=== PATIENT | male | born 1960 | race Caucasian/White ===

== ENCOUNTER 2021-05-10 23:34 | Emergency (ER) | payer OTHER ==
--- NOTE | 2021-05-10 23:59 | EDM.PDOC ---
ED HPI GENERAL MEDICAL PROBLEM - General Chief Complaint: Headache Stated Complaint: TOOTH PAIN Time Seen by Provider: 05/10/21 23:51 Source of Information: Reports: Patient History Limitations: Reports: No Limitations - History of Present Illness INITIAL COMMENTS - FREE TEXT/NARRATIVE: Andreas is a 60-year-old male from [place], [place] who is vacationing up here and developed a left-sided headache. Patient has a history for migraine headaches. Symptoms started at 1900 hrs. tonight. Patient has been having sinus congestion and had pressure and pain in his left maxillary sinus prior to the onset of the left-sided headache. He is not had any fever or chills. Family states that the patient has a history of sinus problems as well as migraine headaches. Patient has photophobia, some nausea without vomiting, but he denies any new onset of numbness, tingling, weakness, or difficulty with walking. He is reporting some lightheadedness. He has had no fever or chills, cough or shortness of breath. Left Headache Pain Score (Numeric/FACES): 9 - Related Data Allergies Allergy/AdvReac Type Severity Reaction Status Date / Time No Known Allergies Allergy Verified 05/10/21 23:55 Home Meds: Home Meds Omeprazole 20 mg PO DAILY 05/10/21 [History] ED ROS GENERAL - Review of Systems Review Of Systems: See Below Constitutional: Reports: No Symptoms HEENT: Reports: Sinus Problem (Left sinus pain), Vision Change (Photophobia) Respiratory: Reports: No Symptoms Cardiovascular: Reports: No Symptoms Endocrine: Reports: No Symptoms GI/Abdominal: Reports: Nausea : Reports: No Symptoms Musculoskeletal: Reports: No Symptoms Skin: Reports: No Symptoms Neurological: Reports: Dizziness (Lightheadedness), Headache (Left-sided) Psychiatric: Reports: No Symptoms Hematologic/Lymphatic: Reports: No Symptoms Immunologic: Reports: No Symptoms - Physical Exam Exam: See Below Exam Limited By: No Limitations General Appearance: Alert, Anxious, Moderate Distress Eye Exam: Bilateral Eye: EOMI, PERRL, Vision Changes (Photophobia) Nose: Nasal Swelling, Nasal Drainage, Other (Tenderness with percussion over the left frontal and maxillary sinus) Throat/Mouth: Normal Inspection, Normal Lips, Normal Oropharynx, Normal Voice, No Airway Compromise Head Exam: Atraumatic, Normocephalic, Sinus Tenderness (Left frontal and maxillary sinus tenderness with percussion) Neck: Normal Inspection, Supple, Full Range of Motion, Lymphadenopathy (L) Respiratory/Chest: No Respiratory Distress, Lungs Clear, Normal Breath Sounds Cardiovascular: Normal Peripheral Pulses, Regular Rate, Rhythm, No Murmur GI/Abdominal: Normal Bowel Sounds, Soft, Non-Tender Neuro Exam (Abbreviated): Alert, Oriented, CN II-XII Intact, Normal Cognition, No Motor/Sensory Deficits Psychiatric: Anxious Skin Exam: Warm, Dry, Intact, Normal Color, No Rash Course - Vital Signs Last Recorded V/S: Last Vital Signs Temp 36.1 C 05/10/21 23:59 Pulse 59 L 05/10/21 23:59 Resp 18 05/10/21 23:59 BP 190/91 H 05/10/21 23:59 Pulse Ox 99 05/10/21 23:59 - Orders/Labs/Meds Orders: Active Orders 24 hr Category Date Time Status Sodium Chloride 0.9% [Normal Saline] 1,000 ml Med 05/11/21 00:15 Active IV ASDIRECTED Sodium Chloride 0.9% [Saline Flush] Med 05/11/21 00:04 Active 10 ml FLUSH ASDIRECTED PRN Saline Lock Insert [OM.PC] Routine Oth 05/11/21 00:04 Ordered Medication Orders Sodium Chloride (Normal Saline) 1,000 mls @ 999 mls/hr IV ASDIRECTED ZAYNAB Last Admin: 05/11/21 00:21 Dose: 999 mls/hr Documented by: EHSAN Sodium Chloride (Sodium Chloride 0.9% 10 Ml Syringe) 10 ml FLUSH ASDIRECTED PRN PRN Reason: Keep Vein Open Last Admin: 05/11/21 00:21 Dose: 10 ml Documented by: EHSAN Labs: Laboratory Tests 05/11/21 05/11/21 Range/Units 00:12 00:12 WBC 13.6 H (4.5-11.0) K/uL RBC 4.71 (4.30-5.90) M/uL Hgb 13.9 (12.0-15.0) g/dL Hct 41.2 (40.0-54.0) % MCV 88 (80-98) fL MCH 30 (27-31) pg MCHC 34 (32-36) % Plt Count 273 (150-400) K/uL Neut % (Auto) 67.4 H (36-66) % Lymph % (Auto) 20.4 L (24-44) % [place] % (Auto) 9.1 H (2-6) % Eos % (Auto) 2.5 (2-4) % Baso % (Auto) 0.6 (0-1) % C-Reactive Protein 0.32 H (0.0-0.3) mg/dL Meds: Medications Generic Name Dose Route Start Last Admin Trade Name Freq PRN Reason Stop Dose Admin Sodium Chloride 1,000 mls @ 999 mls/hr 05/11/21 00:15 05/11/21 00:21 Normal Saline IV 999 mls/hr ASDIRECTED ZAYNAB Administration Sodium Chloride 10 ml 05/11/21 00:04 05/11/21 00:21 Sodium Chloride 0.9% 10 Ml Syringe FLUSH 10 ml ASDIRECTED PRN Administration Keep Vein Open Discontinued Medications Generic Name Dose Route Start Last Admin Trade Name Herbieq PRN Reason Stop Dose Admin Dexamethasone 10 mg 05/11/21 00:04 05/11/21 00:20 Dexamethasone 4 Mg/Ml Sdv IVPUSH 05/11/21 00:05 10 mg ONETIME ONE Administration Diphenhydramine HCl 50 mg 05/11/21 00:04 05/11/21 00:26 Diphenhydramine 50 Mg/Ml Sdv IVPUSH 05/11/21 00:05 50 mg ONETIME ONE Administration Ketorolac Tromethamine 30 mg 05/11/21 00:04 05/11/21 00:20 Ketorolac 30 Mg/Ml Sdv IVPUSH 05/11/21 00:05 30 mg ONETIME ONE Administration Prochlorperazine Edisylate 10 mg 05/11/21 00:04 05/11/21 00:28 Prochlorperazine 10 Mg/2 Ml Sdv IVPUSH 05/11/21 00:05 10 mg ONETIME ONE Administration - Re-Assessments/Exams Free Text/Narrative Re-Assessment/Exam: 05/11/21 00:09 the patient likely has seasonal allergies that contributed to the development of left-sided maxillary sinusitis. This may have been the nidus to trigger his migraine headache. We will put him on azithromycin Z-Sagar to treat the sinusitis and he should buy one of the wzyc-[id number] allergy medicines like Zyrtec, Nicole, or Claritin or may use an alternative decongestant like pseudoephedrine or Mucinex. For the migraine headache, the patient was given normal saline 1 L IV, Toradol 30 mg IV, diphenhydramine 50 mg IV, Compazine 10 mg IV, and dexamethasone 10 mg IV. 05/11/21 01:06 I reviewed the patient's labs showing a leukocyte count of 13.6 with a left shift. His hemoglobin is 13 9 with hematocrit of 41.2 and a platelet count of 273,000. C-reactive protein is mildly elevated at 0.32. The patient has had some relief with the medication as above. He is still having some pain but this is likely due to the sinusitis and sinus pressure. Departure - Departure Time of Disposition: 01:25 Disposition: Home, Self-Care 01 Clinical Impression: Acute maxillary sinusitis Qualifiers: Recurrence: recurrent Qualified Code(s): J01.01 - Acute recurrent maxillary sinusitis Migraine headache Qualifiers: Migraine type: without aura Status migrainosus presence: without status migrainosus Intractability: intractable Qualified Code(s): G43.019 - Migraine without aura, intractable, without status migrainosus - Discharge Information Instructions: Sinusitis, Adult, Migraine Headache, [id number] Referrals: PCP,None [Primary Care Provider] - Forms: ED Department Discharge Care Plan Goals: For the sinusitis, I am starting you on azithromycin Z-Sagar or you will take 2 pills today and 1 pill a day for the next 4 days. This should help knock out the infection in the maxillary sinus. You may want to consider taking one of the zqax-xui-uafzpdt allergy medicines like Claritin, Nicole, or Zyrtec. An alternative would be using a decongestant like Sudafed or Mucinex. This will help reduce the inflammation in the nose and sinuses and allow them to drain. I have given you a dose of hydrocodone for the sinusitis pain. Please start the antibiotic tonight. I would get the decongestants on board as soon as possible. Sepsis Event Note (ED) - Focused Exam Vital Signs: Vital Signs Temp Pulse Resp BP Pulse Ox 05/10/21 23:59 36.1 C 59 L 18 190/91 H 99 05/10/21 23:53 36.1 C 59 L 18 190/91 H 99 - Problem List & Annotations (1) Acute maxillary sinusitis SNOMED Code(s): 90109564 Code(s): J01.00 - ACUTE MAXILLARY SINUSITIS, UNSPECIFIED Status: Acute Priority: Medium Current Visit: Yes Qualifiers: Recurrence: recurrent Qualified Code(s): J01.01 - Acute recurrent maxillary sinusitis (2) Migraine headache SNOMED Code(s): 24996437 Code(s): G43.909 - MIGRAINE, UNSP, NOT INTRACTABLE, WITHOUT STATUS MIGRAINOSUS Status: Acute Priority: Medium Current Visit: Yes Qualifiers: Migraine type: without aura Status migrainosus presence: without status migrainosus Intractability: intractable Qualified Code(s): G43.019 - Migraine without aura, intractable, without status migrainosus - Problem List Review Problem List Initiated/Reviewed/Updated: Yes - My Orders Last 24 Hours: My Active Orders 05/11/21 00:04 Sodium Chloride 0.9% [Saline Flush] 10 ml FLUSH ASDIRECTED PRN Saline Lock Insert [OM.PC] Routine 05/11/21 00:15 Sodium Chloride 0.9% [Normal Saline] 1,000 ml IV ASDIRECTED - Assessment/Plan Last 24 Hours: My Active Orders 05/11/21 00:04 Sodium Chloride 0.9% [Saline Flush] 10 ml FLUSH ASDIRECTED PRN Saline Lock Insert [OM.PC] Routine 05/11/21 00:15 Sodium Chloride 0.9% [Normal Saline] 1,000 ml IV ASDIRECTED
[2021-05-11] MEDS ORDERED: Sodium Chloride 0.9% 10 ML Syringe FLUSH PRN (00:04)
[2021-05-11] MEDS ORDERED: Dexamethasone 4 MG/ML SDV IVPUSH ONE (00:04)
[2021-05-11] MEDS ORDERED: Prochlorperazine 10 MG/2 ML SDV IVPUSH ONE (00:04)
[2021-05-11] MEDS ORDERED: diphenhydrAMINE 50 MG/ML SDV IVPUSH ONE (00:04)
[2021-05-11] MEDS ORDERED: Ketorolac 30 MG/ML SDV IVPUSH ONE (00:04)
[2021-05-11] MEDS ORDERED: Sodium Chloride 0.9% 1,000 ML IV SCH (00:15)
[2021-05-11] MEDS ORDERED: Acetaminophen/HYDROcodone 325-5 MG Tab PO ONE (01:07)
== END 2021-05-11 01:40 | disposition home or self-care (01) ==
LOC: JP.ED 23:34
DX: G43.019 Migraine without aura, intractable, without status migrainosus (principal); J01.01 Acute recurrent maxillary sinusitis; Z79.899 Other long term (current) drug therapy
CPT/HCPCS: 36415; 85025; 86140; 96374; 96375; 99283; A9270; J0780; J1100; J1200; J1885; J7030